=== PATIENT | female | born 1950 | race Two or more races ===

== ENCOUNTER 2021-01-29 12:52 | Emergency (ER) | payer OTHER, MEDICAID ==
[~2021-01-29] VITALS: Ht 160 cm; Wt 63.5 kg
[2021-01-29 13:29] LABS: Basophils # (auto) 0 10 ^3/uL (0-0.2); Eosinophils # (auto) 0.1 10 ^3/uL (0-0.8); Hemoglobin 11.2 g/dL (12.2-16.2); Lymphocytes # (auto) 0.7 10 ^3/uL (0.4-5.4); Monocytes # (auto) 0.6 10 ^3/uL (0-1.3); Neutrophils # (auto) 2.4 10 ^3/uL (1.6-8.6); White Blood Cell 3.8 10^3/uL (4.4-10.8)
[2021-01-29 13:31] LABS: Basophils % (auto) 0.7 % (0.0-2.0); Eosinophils % (auto) 1.9 % (0.0-7.0); Hematocrit 33.6 % (36.0-46.0); Lymphocytes % (auto) 18.6 % (10.0-50.0); Mean Corpuscular Hemoglobin 26.5 pg (28.0-32.0); Mean Corpuscular Hgb Conc. 33.3 g/dL (32.0-36.0); Mean Corpuscular Volume 79.6 fL (80.0-100.0); Monocytes % (auto) 16.3 % (0.0-12.0); Neutrophils % (auto) 62.5 % (37.0-80.0); Nucleated Red Blood Cells % 0.3 %; Red Blood Cells 4.22 10^6/uL (4.0-5.20); Red Cell Distribution Width 20.7 % (11.8-14.3)
[2021-01-29 13:43] LABS: Calcium 7.7 mg/dL (8.5-10.1); Potassium 3.4 mmol/L (3.5-5.1)
[2021-01-29] MEDS ORDERED: SODIUM CHLORIDE 0.9% 500 ML IV ONE (13:45)
[2021-01-29] MEDS ORDERED: cefTRIAXone 1GM/50ML D5W 50 ML IV ONE (13:45)
[2021-01-29] MEDS ORDERED: SODIUM CHLORIDE 0.9% 1,000 ML IV ONE (13:45)
[2021-01-29 13:46] LABS: BUN/Creatinine Ratio 16.9; Bilirubin, Total 1.1 mg/dL (0.2-1.0); Total Protein 7.3 g/dL (6.4-8.2)
[2021-01-29 20:36] VITALS: BP 151/78
== END 2021-01-29 20:37 | disposition home or self-care (01) ==
LOC: ER 12:54
DX: I87.2 Venous insufficiency (chronic) (peripheral) (principal); E87.6 Hypokalemia; R74.8 Abnormal levels of other serum enzymes; E43 Unspecified severe protein-calorie malnutrition; I11.0 Hypertensive heart disease with heart failure; I50.9 Heart failure, unspecified; F17.210 Nicotine dependence, cigarettes, uncomplicated; F19.90 Other psychoactive substance use, unspecified, uncomplicated; Z68.24 Body mass index [BMI] 24.0-24.9, adult
CPT/HCPCS: 36415; 71046; 80053; 83735; 83880; 85025; 93005; 96365; 96366; 99284; J0696; J7030; J7040

== ENCOUNTER 2021-03-10 20:56 | Inpatient (IN) | payer OTHER, MEDICAID ==
[~2021-03-10] VITALS: Ht 152.4 cm; Wt 71.1 kg
[2021-03-10] MEDS ORDERED: NALOXONE HCL 1MG/ML 2ML SYRINGE IV ONE ×2 (22:00→22:15)
[2021-03-10 22:31] LABS: Basophils # (auto) 0 10 ^3/uL (0-0.2); Eosinophils # (auto) 0 10 ^3/uL (0-0.8); Lymphocytes # (auto) 0.4 10 ^3/uL (0.4-5.4); Monocytes # (auto) 0.1 10 ^3/uL (0-1.3); Neutrophils # (auto) 2.9 10 ^3/uL (1.6-8.6); White Blood Cell 3.4 10^3/uL (4.4-10.8)
[2021-03-10 22:43] LABS: Urine Bacteria NONE SEEN /hpf (None Seen); Urine Blood 2+ /uL (Negative); Urine Specific Gravity 1.009 (1.001-1.035); Urine WBC 1 /hpf (0 - 5)
[2021-03-10 22:47] LABS: Basophils % (auto) 0.7 % (0.0-2.0); Eosinophils % (auto) 0.7 % (0.0-7.0); Hemoglobin 11.4 g/dL (12.2-16.2); Lymphocytes % (auto) 12.4 % (10.0-50.0); Mean Corpuscular Hemoglobin 28.2 pg (28.0-32.0); Mean Corpuscular Hgb Conc. 33.5 g/dL (32.0-36.0); Mean Corpuscular Volume 84.2 fL (80.0-100.0); Monocytes % (auto) 2.1 % (0.0-12.0); Neutrophils % (auto) 84.1 % (37.0-80.0); Nucleated Red Blood Cells % 0.1 %; Red Blood Cells 4.04 10^6/uL (4.0-5.20); Red Cell Distribution Width 17.9 % (11.8-14.3)
[2021-03-10 22:51] LABS: Anion Gap 4 (5-15); Blood Urea Nitrogen 13 mg/dL (7-18); Calcium 7.4 mg/dL (8.5-10.1); Carbon Dioxide 26 mmol/L (21-32); Chloride 108 mmol/L (98-107); Glucose 92 mg/dL (74-106); Potassium 3.8 mmol/L (3.5-5.1); Sodium 138 mmol/L (136-145)
[2021-03-10 22:53] LABS: Alcohol, Urine < 3.0 mg/dL (0-10); Amphetamine Screen, Urine NEGATIVE (NEGATIVE); Barbiturate Scree,Urine NEGATIVE (NEGATIVE); Benzodiazephine Screen, Urine NEGATIVE (NEGATIVE); Cannabinoid Screen, Urine NEGATIVE (NEGATIVE); Cocaine Screen, Urine NEGATIVE (NEGATIVE); Opiate Scree,Urine NEGATIVE (NEGATIVE); Phencyclidine Screen, Urine NEGATIVE (NEGATIVE)
[2021-03-10 22:56] LABS: Lactic Acid w/Reflex 3.9 mmol/L (0.4-2.0)
[2021-03-10 22:57] LABS: Alanine Aminotransferase 83 U/L (13-56); Alkaline Phosphatase 194 U/L (45-117); Aspartate Aminotransferase 115 U/L (15-37); BUN/Creatinine Ratio 15.1; Bilirubin, Total 0.8 mg/dL (0.2-1.0); Blood Alcohol < 3.0 mg/dL (0-5); GFR African American 84 mL/min; GFR Non-African American 70 mL/min; Total Protein 7.5 g/dL (6.4-8.2)
[2021-03-10] MEDS ORDERED: SODIUM CHLORIDE 0.9% 1,000 ML IV ONE (23:15)
[2021-03-11] MEDS ORDERED: PIPERACILLIN-TAZOB 3.375GM 100 ML IV ONE
[2021-03-11] MEDS ORDERED: VANCOMYCIN 1GM/250ML 250 ML IV ONE
[2021-03-11] MEDS ORDERED: SODIUM CHLORIDE 0.9% 1,000 ML IV ONE (00:15)
[2021-03-11 01:01] LABS: INR 1.49 (0.9-1.15); Partial Thromboplastin Time 31.3 sec (23.6-33.0)
[2021-03-11] MEDS ORDERED: ASPirin 325 MG TAB PO ONE (03:00)
[2021-03-11] MEDS ORDERED: IOHEXOL 350 MG/ML 100ML IJ ONE (03:12)
[2021-03-11] MEDS ORDERED: SODIUM CHLORIDE 0.9% 500 ML IV ONE (05:00)
[2021-03-11] MEDS: NOREPINEPHRINE 8 MG/250ML KIT 250 ML IV SCH (05:25)
[2021-03-11] MEDS ORDERED: ACETAMINOPHEN 325 MG TAB PO PRN (06:15)
[2021-03-11] MEDS ORDERED: ALBUMIN 25% 50 ML IV ONE (06:15)
[2021-03-11] MEDS ORDERED: NITROGLYCERIN 0.4 MG SL TAB SL PRN (06:15)
[2021-03-11] MEDS ORDERED: ONDANSETRON HCL 4 MG/2 ML VIAL IV PRN (06:15)
[2021-03-11] MEDS ORDERED: MORPHINE SULFATE INJECTION 2 MG/ML SYRG IV PRN (06:15)
[2021-03-11 07:29] LABS: Lactic Acid w/Reflex 3.7 mmol/L (0.4-2.0)
[2021-03-11] MEDS: SODIUM CHLORIDE 0.9% 1,000 ML IV SCH ×2 (08:39→19:37)
[2021-03-11] MEDS ORDERED: cefTRIAXone 1GM/50ML D5W 50 ML IV SCH (09:00)
[2021-03-11] MEDS ORDERED: ASPirin 81 mg TAB PO SCH (10:00)
[2021-03-11] MEDS: PANTOPRAZOLE 40 MG/10 ML VIAL INJ IV SCH (10:22)
[2021-03-11 12:21] LABS: CRP High Sensitivity 0.93 mg/dL (< 0.3)
[2021-03-11] MEDS: metroNIDAZOLE 500MG/100ML 100 ML IV SCH ×2 (13:40→22:43)
[2021-03-11] MEDS ORDERED: VANCOMYCIN PER PHARMACY 0 MG IV SCH (14:15)
[2021-03-11] MEDS: ALBUMIN 25% 100 ML IV SCH (16:12)
[2021-03-11] MEDS: CEFEPIME 1 GM in SODIUM CHL 0.9% 50 ML IV SCH (17:10)
[2021-03-11] MEDS: VANCOMYCIN 1GM/250ML 250 ML IV SCH (17:24)
[2021-03-11] MEDS: ATORVASTATIN 20 MG TAB PO SCH (22:43)
[2021-03-12] MEDS: ALBUMIN 25% 100 ML IV SCH ×2 (00:17→09:59)
[2021-03-12] MEDS: VANCOMYCIN 1GM/250ML 250 ML IV SCH ×2 (06:30→18:38)
[2021-03-12] MEDS: NOREPINEPHRINE 8 MG/250ML KIT 250 ML IV SCH (06:30)
[2021-03-12] MEDS: metroNIDAZOLE 500MG/100ML 100 ML IV SCH ×3 (06:30→20:52)
[2021-03-12 07:54] LABS: Basophils # (auto) 0.1 10 ^3/uL (0-0.2); Basophils % (auto) 0.3 % (0.0-2.0); Eosinophils % (auto) 4.3 % (0.0-7.0); Hemoglobin 10.2 g/dL (12.2-16.2); Lymphocytes # (auto) 0.6 10 ^3/uL (0.4-5.4); Lymphocytes % (auto) 2.5 % (10.0-50.0); Mean Corpuscular Hgb Conc. 32.9 g/dL (32.0-36.0); Mean Corpuscular Volume 85.3 fL (80.0-100.0); Monocytes # (auto) 1.9 10 ^3/uL (0-1.3); Monocytes % (auto) 8.3 % (0.0-12.0); Neutrophils # (auto) 19.7 10 ^3/uL (1.6-8.6); Neutrophils % (auto) 84.6 % (37.0-80.0); Red Blood Cells 3.63 10^6/uL (4.0-5.20); White Blood Cell 23.3 10^3/uL (4.4-10.8)
[2021-03-12 07:55] LABS: Albumin 2.3 g/dL (3.4-5.0); BUN/Creatinine Ratio 21.7; Calcium 7.6 mg/dL (8.5-10.1); Potassium 3.6 mmol/L (3.5-5.1)
[2021-03-12 07:59] LABS: Bilirubin, Total 2.2 mg/dL (0.2-1.0)
[2021-03-12] MEDS: SODIUM CHLORIDE 0.9% 1,000 ML IV SCH ×2 (09:02→23:17)
[2021-03-12] MEDS: CEFEPIME 1 GM in SODIUM CHL 0.9% 50 ML IV SCH ×4 (09:02→17:24)
[2021-03-12] MEDS ORDERED: ALBUMIN 25% 100 ML IV ONE (09:53)
[2021-03-12] MEDS: PANTOPRAZOLE 40 MG/10 ML VIAL INJ IV SCH (10:06)
[2021-03-12] MEDS: ENOXAPARIN SOD 80 MG/0.8ML SYRINGE SC SCH ×2 (11:48→20:03)
[2021-03-12] MEDS ORDERED: LIDOCAINE 1% (LOCAL ANESTH.) PF 5ml SDV ID ONE (15:00)
[2021-03-12 19:15] VITALS: BP 141/60
[2021-03-12 19:26] VITALS: BP 128/46
[2021-03-12 19:40] VITALS: BP 120/47
[2021-03-12] MEDS: SODIUM CHLOR 0.9% PF (SALINE LOCK) 10ML VIAL/SYR IV SCH (19:47)
[2021-03-12 19:48] VITALS: BP 111/43
[2021-03-12] MEDS: ATORVASTATIN 20 MG TAB PO SCH (20:03)
[2021-03-12 20:54] VITALS: BP 109/46
[2021-03-13] MEDS: CEFEPIME 1 GM in SODIUM CHL 0.9% 50 ML IV SCH ×2 (00:44→08:49)
[2021-03-13] MEDS: VANCOMYCIN 1GM/250ML 250 ML IV SCH (05:00)
[2021-03-13] MEDS: NOREPINEPHRINE 8 MG/250ML KIT 250 ML IV SCH (05:00)
[2021-03-13] MEDS: metroNIDAZOLE 500MG/100ML 100 ML IV SCH ×3 (06:56→22:04)
[2021-03-13] MEDS: ENOXAPARIN SOD 80 MG/0.8ML SYRINGE SC SCH (09:23)
[2021-03-13] MEDS: SODIUM CHLOR 0.9% PF (SALINE LOCK) 10ML VIAL/SYR IV SCH ×2 (09:23→22:04)
[2021-03-13] MEDS: PANTOPRAZOLE 40 MG/10 ML VIAL INJ IV SCH (09:23)
[2021-03-13 09:37] LABS: Albumin 1.9 g/dL (3.4-5.0); Calcium 7.2 mg/dL (8.5-10.1); Potassium 3.2 mmol/L (3.5-5.1)
[2021-03-13 09:41] LABS: BUN/Creatinine Ratio 32.5; Bilirubin, Total 1.8 mg/dL (0.2-1.0); Total Protein 5.3 g/dL (6.4-8.2)
[2021-03-13 10:50] LABS: Basophils # (auto) 0 10 ^3/uL (0-0.2); Basophils % (auto) 0.5 % (0.0-2.0); Eosinophils # (auto) 0.1 10 ^3/uL (0-0.8); Hemoglobin 9.2 g/dL (12.2-16.2); Lymphocytes # (auto) 0.3 10 ^3/uL (0.4-5.4); Monocytes # (auto) 0.5 10 ^3/uL (0-1.3); Nucleated Red Blood Cells % 0.1 %; White Blood Cell 7.6 10^3/uL (4.4-10.8)
[2021-03-13 10:52] LABS: Eosinophils % (auto) 0.8 % (0.0-7.0); Hematocrit 27.1 % (36.0-46.0); Mean Corpuscular Hemoglobin 28.7 pg (28.0-32.0); Mean Corpuscular Hgb Conc. 33.9 g/dL (32.0-36.0); Mean Corpuscular Volume 84.6 fL (80.0-100.0); Monocytes % (auto) 7.2 % (0.0-12.0); Neutrophils # (auto) 6.6 10 ^3/uL (1.6-8.6); Neutrophils % (auto) 87.5 % (37.0-80.0); Red Cell Distribution Width 18.8 % (11.8-14.3)
[2021-03-13] MEDS: POTASSIUM CHL 20MEQ/100ML 100 ML IV SCH ×2 (16:16→17:30)
[2021-03-13 16:27] VITALS: BP 122/70
[2021-03-13] MEDS: AMPICILLIN INJ 1 GM in SODIUM CHL 0.9% 50 ML IV SCH (19:01)
[2021-03-13] MEDS ORDERED: ALBUTEROL SULF 2.5 MG/0.5ML(0.5%) NEB SOLN NEB ONE (19:15)
[2021-03-13] MEDS ORDERED: METOPROLOL TARTRATE 1MG/1ML-5ML VIAL IV ONE (19:15)
[2021-03-13] MEDS ORDERED: FUROSEMIDE 40 MG/4 ML VIAL IV ONE (19:45)
[2021-03-13 22:00] VITALS: BP 141/70
[2021-03-13] MEDS: ATORVASTATIN 20 MG TAB PO SCH (22:04)
[2021-03-14] MEDS: AMPICILLIN INJ 1 GM in SODIUM CHL 0.9% 50 ML IV SCH ×2 (00:29→05:44)
[2021-03-14 05:00] VITALS: BP 127/60
[2021-03-14] MEDS: metroNIDAZOLE 500MG/100ML 100 ML IV SCH ×3 (05:44→22:17)
[2021-03-14 07:13] LABS: Albumin 2.1 g/dL (3.4-5.0); Calcium 7.7 mg/dL (8.5-10.1); Potassium 3.3 mmol/L (3.5-5.1)
[2021-03-14 07:16] LABS: Hematocrit 27.5 % (36.0-46.0); Hemoglobin 9.6 g/dL (12.2-16.2); Mean Corpuscular Volume 84.1 fL (80.0-100.0); Red Blood Cells 3.26 10^6/uL (4.0-5.20)
[2021-03-14 07:18] LABS: Mean Corpuscular Hemoglobin 29.4 pg (28.0-32.0); Mean Corpuscular Hgb Conc. 34.9 g/dL (32.0-36.0); Red Cell Distribution Width 18.7 % (11.8-14.3)
[2021-03-14 07:47] LABS: BUN/Creatinine Ratio 21.4; Bilirubin, Total 2.2 mg/dL (0.2-1.0); Total Protein 5.6 g/dL (6.4-8.2)
[2021-03-14 08:03] LABS: Basophils % (manual) 0 (0.0-2.0); Blast Cells 0; Metamyelocytes % 0; Myelocytes % 0; Promyelocytes % 0; Reactive Lymphocytes 0
[2021-03-14] MEDS ORDERED: POTASSIUM EFFERVESENT TAB 25 MEQ PO ONE (09:15)
[2021-03-14] MEDS: PANTOPRAZOLE 40 MG/10 ML VIAL INJ IV SCH (09:17)
[2021-03-14] MEDS: SODIUM CHLOR 0.9% PF (SALINE LOCK) 10ML VIAL/SYR IV SCH ×2 (09:17→22:18)
[2021-03-14] MEDS ORDERED: FUROSEMIDE 100 MG/10ML VIAL IV ONE (10:15)
[2021-03-14 10:21] LABS: Band Neutrophils % (manual) 9; Eosinophils % (manual) 1 (0-7); Lymphocytes % (manual) 4 (10.0-50.0); Monocytes % (manual) 4 (0-12)
[2021-03-14 12:30] VITALS: BP 141/62
[2021-03-14] MEDS ORDERED: levoFLOXacin 500MG 100 ML IV ONE (15:15)
[2021-03-14] MEDS ORDERED: IPRATROPIUM BROM 0.5 MG/2.5ML INH SOL NEB ONE (15:15)
[2021-03-14] MEDS ORDERED: ALBUTEROL SULF 2.5 MG/0.5ML(0.5%) NEB SOLN NEB ONE (15:15)
[2021-03-14 16:44] VITALS: BP 128/69
[2021-03-14] MEDS: ENOXAPARIN SOD 40 MG/0.4 ML SYRINGE SC SCH (17:37)
[2021-03-14] MEDS: IPRATROPIUM BROM 0.5 MG/2.5ML INH SOL NEB SCH ×2 (18:45→22:33)
[2021-03-14] MEDS: ALBUTEROL SULF 2.5 MG/0.5ML(0.5%) NEB SOLN NEB SCH ×2 (18:45→22:33)
[2021-03-14 22:00] VITALS: BP 141/69
[2021-03-14] MEDS: ATORVASTATIN 20 MG TAB PO SCH (22:18)
[2021-03-14 22:47] VITALS: BP 141/69
[2021-03-15] MEDS: IPRATROPIUM BROM 0.5 MG/2.5ML INH SOL NEB SCH ×6 (02:00→22:15)
[2021-03-15] MEDS: ALBUTEROL SULF 2.5 MG/0.5ML(0.5%) NEB SOLN NEB SCH ×6 (02:00→22:15)
[2021-03-15 05:30] VITALS: BP 144/73
[2021-03-15] MEDS: metroNIDAZOLE 500MG/100ML 100 ML IV SCH ×3 (06:16→21:44)
[2021-03-15 06:24] LABS: Basophils # (auto) 0 10 ^3/uL (0-0.2); Basophils % (auto) 0.3 % (0.0-2.0); Eosinophils # (auto) 0.1 10 ^3/uL (0-0.8); Eosinophils % (auto) 1.4 % (0.0-7.0); Hematocrit 29.4 % (36.0-46.0); Hemoglobin 9.9 g/dL (12.2-16.2); Lymphocytes # (auto) 0.4 10 ^3/uL (0.4-5.4); Lymphocytes % (auto) 7.5 % (10.0-50.0); Mean Corpuscular Hemoglobin 28.3 pg (28.0-32.0); Mean Corpuscular Hgb Conc. 33.7 g/dL (32.0-36.0); Mean Corpuscular Volume 84.1 fL (80.0-100.0); Monocytes # (auto) 0.8 10 ^3/uL (0-1.3); Monocytes % (auto) 15.4 % (0.0-12.0); Neutrophils # (auto) 3.9 10 ^3/uL (1.6-8.6); Neutrophils % (auto) 75.4 % (37.0-80.0); Nucleated Red Blood Cells % 0.3 %; Red Cell Distribution Width 18.4 % (11.8-14.3); White Blood Cell 5.2 10^3/uL (4.4-10.8)
[2021-03-15 06:51] LABS: Albumin 1.9 g/dL (3.4-5.0); BUN/Creatinine Ratio 20.6; Calcium 7.5 mg/dL (8.5-10.1); Total Protein 5.6 g/dL (6.4-8.2)
[2021-03-15 06:59] LABS: Potassium 2.9 mmol/L (3.5-5.1)
[2021-03-15] MEDS ORDERED: POTASSIUM CHL 20 Meq TABLET PO ONE (07:15)
[2021-03-15 09:00] VITALS: BP 141/66
[2021-03-15] MEDS: POTASSIUM CHL 20MEQ/100ML 100 ML IV SCH ×2 (09:15→10:00)
[2021-03-15] MEDS: SODIUM CHLOR 0.9% PF (SALINE LOCK) 10ML VIAL/SYR IV SCH ×2 (10:00→21:44)
[2021-03-15] MEDS: ENOXAPARIN SOD 40 MG/0.4 ML SYRINGE SC SCH (10:00)
[2021-03-15] MEDS: PANTOPRAZOLE 40 MG/10 ML VIAL INJ IV SCH (10:00)
[2021-03-15] MEDS: levoFLOXacin 750MG 150 ML IV SCH (10:00)
[2021-03-15 13:00] VITALS: BP 146/73
[2021-03-15 17:00] VITALS: BP 114/66
[2021-03-15] MEDS: ATORVASTATIN 20 MG TAB PO SCH (21:45)
[2021-03-15 22:00] VITALS: BP 141/100
[2021-03-16 05:00] VITALS: BP 152/80
[2021-03-16] MEDS: metroNIDAZOLE 500MG/100ML 100 ML IV SCH ×3 (05:32→22:12)
[2021-03-16] MEDS: IPRATROPIUM BROM 0.5 MG/2.5ML INH SOL NEB SCH ×6 (06:00→22:43)
[2021-03-16] MEDS: ALBUTEROL SULF 2.5 MG/0.5ML(0.5%) NEB SOLN NEB SCH ×6 (06:00→22:43)
[2021-03-16 07:22] LABS: Hemoglobin 10.1 g/dL (12.2-16.2)
[2021-03-16 07:27] LABS: Hematocrit 29.9 % (36.0-46.0); Mean Corpuscular Hgb Conc. 33.9 g/dL (32.0-36.0); Mean Corpuscular Volume 85.6 fL (80.0-100.0); Red Blood Cells 3.49 10^6/uL (4.0-5.20); Red Cell Distribution Width 18.8 % (11.8-14.3); White Blood Cell 4.9 10^3/uL (4.4-10.8)
[2021-03-16 07:35] LABS: Potassium 3.6 mmol/L (3.5-5.1)
[2021-03-16 07:43] LABS: Albumin 1.9 g/dL (3.4-5.0); BUN/Creatinine Ratio 18.8; Bilirubin, Total 4.1 mg/dL (0.2-1.0); Calcium 7.5 mg/dL (8.5-10.1); Total Protein 5.6 g/dL (6.4-8.2)
[2021-03-16 07:49] LABS: Basophils % (manual) 0 (0.0-2.0); Blast Cells 0; Promyelocytes % 0; Reactive Lymphocytes 0
[2021-03-16 08:30] VITALS: BP 151/73
[2021-03-16] MEDS: PANTOPRAZOLE 40 MG/10 ML VIAL INJ IV SCH (10:00)
[2021-03-16] MEDS: levoFLOXacin 750MG 150 ML IV SCH (10:00)
[2021-03-16] MEDS: ENOXAPARIN SOD 40 MG/0.4 ML SYRINGE SC SCH (10:00)
[2021-03-16] MEDS: SODIUM CHLOR 0.9% PF (SALINE LOCK) 10ML VIAL/SYR IV SCH ×2 (10:00→22:13)
[2021-03-16 12:31] LABS: Band Neutrophils % (manual) 3; Eosinophils % (manual) 5 (0-7); Lymphocytes % (manual) 6 (10.0-50.0); Metamyelocytes % 1; Monocytes % (manual) 10 (0-12); Myelocytes % 2
[2021-03-16 17:00] VITALS: BP 142/78
[2021-03-16] MEDS: ATORVASTATIN 20 MG TAB PO SCH (22:13)
[2021-03-16 22:37] VITALS: BP 121/62
[2021-03-17] MEDS: ALBUTEROL SULF 2.5 MG/0.5ML(0.5%) NEB SOLN NEB SCH ×6 (02:37→22:55)
[2021-03-17] MEDS: IPRATROPIUM BROM 0.5 MG/2.5ML INH SOL NEB SCH ×6 (02:37→22:55)
[2021-03-17 05:52] VITALS: BP 138/65
[2021-03-17] MEDS: metroNIDAZOLE 500MG/100ML 100 ML IV SCH ×3 (06:32→21:49)
[2021-03-17 07:07] LABS: Hematocrit 31.3 % (36.0-46.0); Hemoglobin 10.7 g/dL (12.2-16.2); Mean Corpuscular Hemoglobin 28.9 pg (28.0-32.0); Mean Corpuscular Hgb Conc. 34.1 g/dL (32.0-36.0); Mean Corpuscular Volume 84.9 fL (80.0-100.0); Red Blood Cells 3.68 10^6/uL (4.0-5.20); Red Cell Distribution Width 18.3 % (11.8-14.3); White Blood Cell 5.7 10^3/uL (4.4-10.8)
[2021-03-17 07:09] LABS: Albumin 1.8 g/dL (3.4-5.0); BUN/Creatinine Ratio 20.6; Calcium 7.5 mg/dL (8.5-10.1); Potassium 3.4 mmol/L (3.5-5.1)
[2021-03-17 07:12] LABS: Basophils % (manual) 0 (0.0-2.0); Bilirubin, Total 6.2 mg/dL (0.2-1.0); Blast Cells 0; Eosinophils % (manual) 0 (0-7); Promyelocytes % 0; Reactive Lymphocytes 0; Total Protein 5.4 g/dL (6.4-8.2)
[2021-03-17 08:37] LABS: Band Neutrophils % (manual) 6; Lymphocytes % (manual) 8 (10.0-50.0); Metamyelocytes % 1; Monocytes % (manual) 4 (0-12); Myelocytes % 1
[2021-03-17 09:00] VITALS: BP 133/59
[2021-03-17] MEDS ORDERED: FUROSEMIDE 40 MG/4 ML VIAL IV ONE (09:30)
[2021-03-17] MEDS ORDERED: POTASSIUM CHL 20 Meq TABLET PO ONE (09:30)
[2021-03-17] MEDS: SODIUM CHLOR 0.9% PF (SALINE LOCK) 10ML VIAL/SYR IV SCH ×2 (11:12→21:49)
[2021-03-17] MEDS: PANTOPRAZOLE 40 MG/10 ML VIAL INJ IV SCH (11:12)
[2021-03-17] MEDS: ENOXAPARIN SOD 40 MG/0.4 ML SYRINGE SC SCH (11:13)
[2021-03-17] MEDS: MEROPENEM 1GM IVPB 100 ML IV SCH ×2 (12:01→20:30)
[2021-03-17 17:00] VITALS: BP 134/51
[2021-03-17] MEDS: MAGNESIUM SULFATE 1GM/100ML 100 ML IV SCH ×3 (17:30→18:46)
[2021-03-17] MEDS: FUROSEMIDE 40 MG/4 ML VIAL IV SCH (18:29)
[2021-03-17] MEDS: ATORVASTATIN 20 MG TAB PO SCH (21:49)
[2021-03-17] MEDS: POTASSIUM CHL 20 Meq TABLET PO SCH (21:49)
[2021-03-18] MEDS: ALBUTEROL SULF 2.5 MG/0.5ML(0.5%) NEB SOLN NEB SCH ×7 (03:33→23:54)
[2021-03-18] MEDS: IPRATROPIUM BROM 0.5 MG/2.5ML INH SOL NEB SCH ×7 (03:33→23:54)
[2021-03-18] MEDS: MEROPENEM 1GM IVPB 100 ML IV SCH ×3 (04:27→20:00)
[2021-03-18 06:59] LABS: Eosinophils # (auto) 0.1 10 ^3/uL (0-0.8); Lymphocytes # (auto) 0.5 10 ^3/uL (0.4-5.4)
[2021-03-18 07:01] LABS: Basophils # (auto) 0 10 ^3/uL (0-0.2); Basophils % (auto) 0.4 % (0.0-2.0); Eosinophils % (auto) 1.6 % (0.0-7.0); Hematocrit 32.3 % (36.0-46.0); Hemoglobin 10.9 g/dL (12.2-16.2); Lymphocytes % (auto) 5.2 % (10.0-50.0); Mean Corpuscular Hemoglobin 29.5 pg (28.0-32.0); Mean Corpuscular Hgb Conc. 33.7 g/dL (32.0-36.0); Mean Corpuscular Volume 87.5 fL (80.0-100.0); Monocytes # (auto) 0.9 10 ^3/uL (0-1.3); Monocytes % (auto) 9.7 % (0.0-12.0); Neutrophils # (auto) 7.9 10 ^3/uL (1.6-8.6); Neutrophils % (auto) 83.1 % (37.0-80.0); Nucleated Red Blood Cells % 0.2 %; Red Blood Cells 3.69 10^6/uL (4.0-5.20); White Blood Cell 9.4 10^3/uL (4.4-10.8)
[2021-03-18 07:07] LABS: Potassium 3.5 mmol/L (3.5-5.1)
[2021-03-18] MEDS: metroNIDAZOLE 500MG/100ML 100 ML IV SCH ×3 (07:07→21:33)
[2021-03-18] MEDS: FUROSEMIDE 40 MG/4 ML VIAL IV SCH (07:08)
[2021-03-18 07:21] LABS: Albumin 1.8 g/dL (3.4-5.0); BUN/Creatinine Ratio 19.7; Bilirubin, Total 8.3 mg/dL (0.2-1.0); Calcium 7.4 mg/dL (8.5-10.1); Total Protein 5.5 g/dL (6.4-8.2)
[2021-03-18] MEDS ORDERED: LORazepam 2MG/ML-1ML VIAL IV ONE (09:15)
[2021-03-18 09:20] VITALS: BP 139/63
[2021-03-18 10:35] VITALS: BP 132/60
[2021-03-18] MEDS: POTASSIUM CHL 20 Meq TABLET PO SCH (10:35)
[2021-03-18] MEDS: SODIUM CHLOR 0.9% PF (SALINE LOCK) 10ML VIAL/SYR IV SCH ×2 (10:35→21:33)
[2021-03-18] MEDS: PANTOPRAZOLE 40 MG/10 ML VIAL INJ IV SCH (10:35)
[2021-03-18] MEDS: ENOXAPARIN SOD 40 MG/0.4 ML SYRINGE SC SCH (10:35)
[2021-03-18 14:50] VITALS: BP 132/60
[2021-03-18 16:46] VITALS: BP 128/69
[2021-03-18] MEDS: ATORVASTATIN 20 MG TAB PO SCH (21:33)
[2021-03-18 22:21] VITALS: BP 113/90
[2021-03-18 22:25] VITALS: BP 114/69
[2021-03-18] MEDS ORDERED: dilTIAZem 25 MG/5 ML VIAL IV ONE (22:45)
[2021-03-18] MEDS ORDERED: DIGOXIN (250MCG/ML) 2 ML AMPULE IV ONE (23:15)
[2021-03-18] MEDS ORDERED: ALBUMIN 5% 250 ML IV ONE ×2 (23:15→23:17)
[2021-03-18] MEDS ORDERED: DIGOXIN (250MCG/ML) 2 ML AMPULE IV PRN (23:15)
[2021-03-18] MEDS ORDERED: DIGOXIN (250MCG/ML) 2 ML AMPULE ONE (23:18)
[2021-03-19] VITALS (9 sets, daily range): BP systolic 98–167; BP diastolic 47–98
[2021-03-19] MEDS ORDERED: AMIODARONE HCL 150 MG in D5W 5% 100 ML IV ONE (00:30)
[2021-03-19] MEDS ORDERED: AMIODARONE HCL (50 MG/ ML) 3 ML VIAL IV ONE (00:42)
[2021-03-19] MEDS ORDERED: AMIODARONE 450mg/250ml AE 250 ML IV SCH (00:45)
[2021-03-19] MEDS: IPRATROPIUM BROM 0.5 MG/2.5ML INH SOL NEB SCH ×7 (02:16→22:20)
[2021-03-19] MEDS: ALBUTEROL SULF 2.5 MG/0.5ML(0.5%) NEB SOLN NEB SCH ×7 (02:16→22:20)
[2021-03-19] MEDS: MEROPENEM 1GM IVPB 100 ML IV SCH ×3 (04:30→20:00)
[2021-03-19] MEDS: metroNIDAZOLE 500MG/100ML 100 ML IV SCH ×3 (06:08→21:40)
[2021-03-19] MEDS: AMIODARONE 450mg/250ml AE 250 ML IV SCH ×3 (06:53→14:25)
[2021-03-19 07:50] LABS: Basophils # (auto) 0 10 ^3/uL (0-0.2); Basophils % (auto) 0.1 % (0.0-2.0); Eosinophils # (auto) 0.1 10 ^3/uL (0-0.8); Eosinophils % (auto) 0.4 % (0.0-7.0); Hematocrit 33.1 % (36.0-46.0); Hemoglobin 10.8 g/dL (12.2-16.2); Lymphocytes # (auto) 0.5 10 ^3/uL (0.4-5.4); Lymphocytes % (auto) 3.5 % (10.0-50.0); Mean Corpuscular Hemoglobin 29.1 pg (28.0-32.0); Mean Corpuscular Hgb Conc. 32.7 g/dL (32.0-36.0); Monocytes # (auto) 0.8 10 ^3/uL (0-1.3); Monocytes % (auto) 5.9 % (0.0-12.0); Neutrophils # (auto) 12.2 10 ^3/uL (1.6-8.6); Neutrophils % (auto) 90.1 % (37.0-80.0); Nucleated Red Blood Cells % 0.2 %; Red Blood Cells 3.71 10^6/uL (4.0-5.20); Red Cell Distribution Width 19.4 % (11.8-14.3); White Blood Cell 13.6 10^3/uL (4.4-10.8)
[2021-03-19 07:59] LABS: Alanine Aminotransferase 27 U/L (13-56); Albumin 1.9 g/dL (3.4-5.0); Anion Gap 10 (5-15); Aspartate Aminotransferase 111 U/L (15-37); BUN/Creatinine Ratio 18.4; Blood Urea Nitrogen 21 mg/dL (7-18); Calcium 7.5 mg/dL (8.5-10.1); Carbon Dioxide 24 mmol/L (21-32); Chloride 105 mmol/L (98-107); GFR African American 61 mL/min; GFR Non-African American 50 mL/min; Glucose 109 mg/dL (74-106); Potassium 4.8 mmol/L (3.5-5.1); Sodium 139 mmol/L (136-145)
[2021-03-19 08:02] LABS: Alkaline Phosphatase 91 U/L (45-117); Bilirubin, Total 11.2 mg/dL (0.2-1.0); Total Protein 5.8 g/dL (6.4-8.2)
[2021-03-19] MEDS ORDERED: GASTROGRAFIN 120 ML SOL ONE (09:10)
[2021-03-19] MEDS ORDERED: BARIUM SULFATE 98% 340 GM PWDR ONE (09:11)
[2021-03-19] MEDS ORDERED: EZ-GAS II GRANULES (RADIOLOGY USE) PO ONE (09:15)
[2021-03-19] MEDS: ENOXAPARIN SOD 40 MG/0.4 ML SYRINGE SC SCH (11:53)
[2021-03-19] MEDS: PANTOPRAZOLE 40 MG/10 ML VIAL INJ IV SCH (11:53)
[2021-03-19] MEDS: SODIUM CHLOR 0.9% PF (SALINE LOCK) 10ML VIAL/SYR IV SCH ×2 (11:57→21:40)
[2021-03-19] MEDS: ATORVASTATIN 20 MG TAB PO SCH (21:40)
[2021-03-20] MEDS: IPRATROPIUM BROM 0.5 MG/2.5ML INH SOL NEB SCH ×4 (02:10→13:56)
[2021-03-20] MEDS: ALBUTEROL SULF 2.5 MG/0.5ML(0.5%) NEB SOLN NEB SCH ×4 (02:10→13:57)
[2021-03-20] MEDS: MEROPENEM 1GM IVPB 100 ML IV SCH ×2 (03:54→11:04)
[2021-03-20 05:00] VITALS: BP 117/53
[2021-03-20] MEDS: metroNIDAZOLE 500MG/100ML 100 ML IV SCH (05:50)
[2021-03-20] MEDS: PANTOPRAZOLE 40 MG/10 ML VIAL INJ IV SCH (08:40)
[2021-03-20] MEDS: SODIUM CHLOR 0.9% PF (SALINE LOCK) 10ML VIAL/SYR IV SCH (08:41)
[2021-03-20] MEDS: AMIODARONE 450mg/250ml AE 250 ML IV SCH (08:49)
[2021-03-20 09:00] VITALS: BP 125/65
[2021-03-20] MEDS ORDERED: FUROSEMIDE 40 MG/4 ML VIAL IV ONE (09:30)
[2021-03-20] MEDS: ENOXAPARIN SOD 40 MG/0.4 ML SYRINGE SC SCH (11:05)
[2021-03-20 12:43] VITALS: BP 129/63
[2021-03-20] MEDS ORDERED: AMIODARONE HCL 200 MG TAB PO ONE (14:30)
[2021-03-20 15:29] VITALS: BP 121/61
[2021-03-20 17:00] VITALS: BP 121/57
[2021-03-20] MEDS ORDERED: PANT40TA2 PO (17:41)
[2021-03-20] MEDS ORDERED: AMIO200T33 PO (17:41)
[2021-03-20] MEDS ORDERED: URSO300C9 PO (17:49)
[2021-03-20] MEDS ORDERED: AMIODARONE HCL 200 MG TAB PO SCH (22:00)
== END 2021-03-20 17:45 | disposition hospice, home (50) | DRG 871 ==
LOC: EDBD 20:56 → ER 20:59 → TELE 03-11 06:02 → TELE-WESTW 03-13 15:26
PROVIDERS: ADMIT Nurse Practitioner; ATTEND Internal Medicine
PROC: 06HY33Z Insertion of Infusion Device into Lower Vein, Percutaneous Approach (ICD-10-PCS; principal; 2021-03-11)
DX: A40.9 Streptococcal sepsis, unspecified (principal); R65.21 Severe sepsis with septic shock; I21.A1 Myocardial infarction type 2; G93.41 Metabolic encephalopathy; E43 Unspecified severe protein-calorie malnutrition; I50.33 Acute on chronic diastolic (congestive) heart failure; J18.9 Pneumonia, unspecified organism; D68.4 Acquired coagulation factor deficiency; K76.6 Portal hypertension; K80.00 Calculus of gallbladder with acute cholecystitis without obstruction; E11.9 Type 2 diabetes mellitus without complications; Z20.822 Contact with and (suspected) exposure to COVID-19; B19.20 Unspecified viral hepatitis C without hepatic coma; D69.59 Other secondary thrombocytopenia; E87.6 Hypokalemia; I11.0 Hypertensive heart disease with heart failure; I48.91 Unspecified atrial fibrillation; K70.30 Alcoholic cirrhosis of liver without ascites; I87.2 Venous insufficiency (chronic) (peripheral); M19.90 Unspecified osteoarthritis, unspecified site; Z68.30 Body mass index [BMI] 30.0-30.9, adult; Z88.5 Allergy status to narcotic agent
CPT/HCPCS: 36415; 36569; 36600; 70450; 71045; 71275; 74181; 74246; 74250; 76700; 76705; 78226; 80053; 80061; 80202; 80307; 80320; 81001; 82140; 82728; 82805; 83036; 83605; 83735; 83880; 84132; 84443; 84484; 85007; 85025; 85027; 85379; 85610; 85730; 86141; 87040; 87077; 87081; 87086; 87186; 87426; 93005; 93306; 93970; 93971; 94640; 96361; 96365; 96367; 97110; 97116; 97530; 99291; C9113; G0378; J0696; J1956; J2185; J2543; J3480; J3490; J7060; P9047